=== PATIENT | female | born 1985 | race Caucasian/White ===

== ENCOUNTER → 2019-12-16 13:55 | Outpatient (CLI) | payer OTHER, SELFPAY ==
[2019-12-16 16:03] LABS: Estradiol 89.4 pg/mL; Follicle Stimulating Hormone 5.8 mIU/mL; Luteinizing Hormone 5.1 mIU/mL; Thyroid Stim Hormone (TSH) 0.86 uIU/mL (0.358-3.74)
[2019-12-22 14:47] LABS: HPV APTIMA, High Risk Negative (Negative)
[2019-12-22 14:48] LABS: HPV Reflexed? YES, CHARGE PATIENT
== END ==
LOC: WOBLAB 13:58
PROVIDERS: Visit Provider Student in an Organized Health Care Education/Training Program
DX: Z12.4 Encounter for screening for malignant neoplasm of cervix (principal); N95.2 Postmenopausal atrophic vaginitis
CPT/HCPCS: 36415; 82670; 83001; 83002; 84443; 87624; 88175; G0145

== ENCOUNTER → 2021-12-13 | Outpatient (CLI) | payer OTHER, SELFPAY ==
[2021-12-19 09:24] LABS: HPV APTIMA, High Risk Negative (Negative)
== END | disposition home or self-care (01) ==
LOC: LABSPEC 11:59
PROVIDERS: Visit Provider Student in an Organized Health Care Education/Training Program
DX: Z01.419 Encounter for gynecological examination (general) (routine) without abnormal findings (principal)
CPT/HCPCS: 87624; 88175; G0145

== ENCOUNTER → 2021-12-26 | Outpatient (CLI) | payer OTHER, SELFPAY ==
--- NOTE | 2021-12-26 13:55 | BI_ITS ---
MAMMOGRAPHY - BILATERAL DIAGNOSTIC REASON FOR EXAM: Female, 36 years old. Six-month history of left nipple discharge and pain. PERTINENT HISTORY: Mother with breast cancer. TECHNIQUE: Digital bilateral breast boo (3D mammographic acquisition) in the CC and MLO projections. 2-D mediolateral oblique (MLO) and craniocaudad (CC) views of both breasts were obtained. CAD: Full Field Digital Mammography with Computer Added Detection was performed. COMPARISON: None. Baseline examination. FINDINGS: Breast Composition: The breasts are heterogeneously dense, which may obscure small masses. There is a 1.1 cm x 0.9 cm slightly irregular nodular density in the deep retroareolar region of the left breast. Also suspect a 0.8 cm nodule deep to the previously mentioned nodule. Correlation with ultrasound is recommended. No other significant abnormalities are identified. BI/DIAG MAMM W/CAD, BILAT IMPRESSION: Findings suggestive of a 2 adjacent nodular densities in the central deep retroareolar region of the left breast. Correlation with ultrasound is recommended. ASSESSMENT CATEGORY: BIRADS Category 0: Incomplete. Need additional imaging evaluation. A letter regarding these results will be sent to the patient by the facility within 30 days. Approximately 10% of breast cancers are not detected by mammography. A normal mammogram should not delay biopsy of a clinically suspicious abnormality. Electronically Signed: Tee Nguyen MD at 15:12 EDT ,
--- NOTE | 2021-12-26 13:56 | US_ITS ---
STUDY: ULTRASOUND BREAST - LEFT REASON FOR EXAM: Female, 36 years old. Left nipple discharge. TECHNIQUE: Axial and longitudinal images of the LEFT breast were performed with a high resolution ultrasound transducer. # OF IMAGES: 28 COMPARISON: Comparison is made with prior mammogram done earlier in the day. FINDINGS: LEFT Breast: There are multiple subcentimeter cysts in the retroareolar region of the breast as well as dilated retroareolar ducts. There is evidence of a 0.7 cm x 1 cm x 0.5 cm complex cyst at the 6 o''clock position breast at 3 cm from nipple. Increased vascularity is seen within it. Biopsy recommended. US/Breast Limited Unilateral IMPRESSION: Multiple cysts as described in the retroareolar region of the breast as well as dilated ducts. There is a 7 mm x 10 mm x 5 mm complex cyst at the 6 o''clock position breast at 3 sinus from nipple with increased vascularity. Biopsy recommended. ASSESSMENT CATEGORY: BIRADS Category 4: Suspicious - Biopsy Should Be Considered. A letter regarding these results will be sent to the patient by the facility within 30 days. Electronically Signed: Tee Nguyen MD at 8:34 EDT ,
== END | disposition home or self-care (01) ==
LOC: OPBI 13:51
PROVIDERS: PCP Nurse Practitioner Family; Visit Provider Student in an Organized Health Care Education/Training Program
DX: N64.52 Nipple discharge (principal); Z80.3 Family history of malignant neoplasm of breast
CPT/HCPCS: 76642; 77062; 77066; G0279

== ENCOUNTER → 2022-01-07 | Outpatient (CLI) | payer OTHER, SELFPAY ==
--- NOTE | 2022-01-07 | BRBX_PTH ---
PATIENT: YESI BRYANT LOC: [facility] U#:[id number] AGE/SX: 36/F ROOM: RE01/07/[address]: Dr. Tucker Qureshi MD : 1985 BED: DIS: 01/07/2022 SPEC #: [id number] RECD: 01/07/22 13:24 STATUS: GUANACO KAROL #: [id number] MAI: 01/07/22 00:[address]: Tucker Qureshi DEPT: SURGICAL PATHOLOGY RECD BY: Livan Quevedo ENTERED: 01/07/22 13:24 SP TYPE: BREAST BX OTHR DR: SHIRA Ayala Tissues: Left breast, NOS Procedures: Surgery Specimen Level IV HEADER OPERATION: Ultrasound-guided left breast biopsy PRE-OP DIAGNOSIS: Left breast mass TISSUE SUBMITTED: Left breast mass ISCHEMIC TIME: 1 minute FIXATION TIME: 5.5 hours MICROSCOPIC DIAGNOSIS Left breast mass, ultrasound-guided core biopsy: Focal intraductal hyperplasia with atypia. Negative for malignancy. See comment. HOWARD:helena 01/08/2022 COMMENT Correlation with clinical, radiologic findings and appropriate follow up are necessary. MICROSCOPIC DESCRIPTION Slides are reviewed. GROSS DESCRIPTION Received in fixative is one container labeled with the patient's name and designated left breast. The specimen consists of multiple elongated fragments of silva-yellow fibroadipose tissue that in aggregate measure 2 x 1 x 0.1 cm. The entire specimen is submitted in one cassette. / HOWARD:helena 01/07/2022 TC:5 CPT: 72950
--- NOTE | 2022-01-07 11:54 | US_ITS ---
ULTRASOUND GUIDED CORE BIOPSY REASON FOR EXAM: Female, 36 years old. Abnormal mammogram of left breast PERTINENT HISTORY: Abnormal density at the 6 o''clock position of the breast COMPARISON: Comparison is made with prior sonogram dated 12/26/2021. TECHNIQUE: (All elements of maximal sterile barrier technique followed, including US elements as applicable) Under direct sonographic guidance, the surgeon performed 3 core biopsies of the nodularity at the 6 o''clock position of the breast at 3 cm from nipple. US/US Breast Biopsy 1st Lesion IMPRESSION: Ultrasound guided core biopsy of a mass in the LEFT breast at the 6 o''clock position of the breast at 3 cm from the nipple without complication. Electronically Signed: Tee Nguyen MD at 13:42 EDT ,
--- NOTE | 2022-01-07 12:33 | PCM.OPRPT ---
Report of Operation Date of Procedure: 01/07/22 Pre-Operative Diagnosis: Abnormal left breast mass Post-Operative Diagnosis: Same Surgery/Procedure Performed:: Ultrasound-guided left breast biopsy Specimen's removed: Left breast core biopsy Description of Procedure: Patient's left breast was prepped and draped in usual sterile fashion. Ultrasound was used localize the mass that was given a BI-RADS score 4. Lateral to this an area of skin was injected with local anesthetic as was the breast tissue. Next there was a small incision made with a scalpel. The mammotome core needle was placed into the mass and several biopsies were obtained. Next a titanium clip was placed into the mass. Steri-Strip and bandage were placed over the incision. Patient tolerated procedure well. I will call her with results.
== END | disposition home or self-care (01) ==
PROVIDERS: PCP Nurse Practitioner Family; Referring Provider Surgery; Visit Provider Surgery
DX: N63.20 Unspecified lump in the left breast, unspecified quadrant (principal); R92.8 Other abnormal and inconclusive findings on diagnostic imaging of breast
CPT/HCPCS: 19083; 88305

== ENCOUNTER 2022-01-16 05:55 | Day surgery (SDC) | payer OTHER, SELFPAY ==
[2022-01-16] VITALS (8 sets, daily range): BP systolic 85–130; BP diastolic 54–98; PULSE 52–80; RESP 16; TEMP 36.6–36.9; O2SAT 98–100; BMI 26.2
--- NOTE | 2022-01-16 | IMM_PTH ---
PATIENT: YESI BRYANT LOC: [facility] [place] U#:[id number] AGE/SX: 36/F ROOM: RE01/16/[address]: Dr. Tucker Qureshi MD : 1985 BED: DIS: 01/16/2022 SPEC #: [id number] RECD: 01/21/22 12:40 STATUS: GUANACO REQ #: [id number] MAI: 01/16/22 00:[address]: Tucker Qureshi DEPT: IMMUNOHISTOCHEMISTRY RECD BY: Elizabeth Parra ENTERED: 01/21/22 12:41 SP TYPE: IMMUNO OTHR DR: Lauren Sagastume, DIRECTOR INTERNAL COMMUNICATIONSAmanda Tissues: A - Left breast, NOS Procedures: SMA (add) CALPONIN-1 (add) CK5-6 (add) KI-67 (add) P53 (add) Pankeratin (initial) PHYSICIAN & INSTITUTION [place] [id number] SPECIMEN INFORMATION: Tissue Source: A ? Left breast mass Clinical Info: Ductal hyperplasia with atypia Specimen Number: [id number] CPT code: 95311, 37771 x5 METHODOLOGY: Deparaffinized sections of prefer/formalin-fixed tissue or PAP/DQ stained slides are incubated with monoclonal/polyclonal antibodies/oligonucleotide probes. Localization is made via biotin free immunoperoxidase method. Appropriate controls are performed and reacted as expected. Results on target cell population are indicated in the following table: RESULTS: ANTIBODY / CLONE RESULT Block A9 AE1-3 (AE1/AE3/PCK26) positive Calponin-1 (SN710M) positive Actin (1A4) positive CK5-6 (D5 & 1684) positive P53 (DO-7) negative Ki-67 (30-9) positive, low These tests were developed and their performance characteristics determined by [facility]. They may not have been cleared or approved by the U.S. Food and Drug Administration. The FDA has determined that such clearance or approval is not necessary. The above immunohistochemical/dualISH markers are ordered and reviewed by the Pathologist. INTERPRETATION: A. Left breast, lumpectomy: Focus of adenosis with atypia. AM:helena 01/22/2022 Case has been reviewed in consultation with Dr. Maurice who concurs with the above diagnosis. IDC:HOWARD
[2022-01-16] MEDS: Lactated Ringers 1,000 ML 15 ML IV (06:38)
--- NOTE | 2022-01-16 07:10 | HP.PCM.SX_ITS ---
HPI - General HPI Narrative YESI BRYANT, is a 36 F who presents for left breast mass. Patient had abnormal ultrasound left breast which showed a BI-RADS 4 lesion. This was biopsied and came back as ductal hyperplasia with atypia. [facility] Medical History (Updated 01/16/22 @ 07:[address] Tucker Qureshi MD) Anemia Anxiety Asthma Heartburn Smoker Wears contact lenses Wears partial dentures Home Medications calcium carbonate 500 mg capsule 500 mg PO PRN PRN Indigestion 01/13/22 [History Last Taken Unknown] Allergy/AdvReac Type Severity Reaction Status Date / Time No Known Allergies Allergy Verified 01/16/22 06:30 Family History (Updated 01/01/22 @ 09:41 by Cheryl Juarez) Mother Breast cancer Hypertension CAD (coronary artery disease) Grandmother Cancer uterine Father Migraine Surgical History (Updated 01/01/22 @ 09:40 by Cheryl Juarez) S/P arthroscopic knee surgery S/P arthroscopic knee surgery S/P section S/P excision of lipoma Social History (Updated 01/01/22 @ 09:41 by Cheryl Juarez) Smoking Status: Current some day smoker tobacco type: cigarettes alcohol intake: current details: social Vital Signs Vital Signs Vital Signs: 01/16/22 06:31 01/16/22 06:31 Temperature 97.8 F Temperature Source Temporal Pulse Rate 62 Respiratory Rate 16 Respiratory Pattern Normal Blood Pressure 108/81 H Blood Pressure Mean 90 Blood Pressure Source Monitor Blood Pressure Position Semi-Fowlers Blood Pressure Location Left Arm Pulse Ox 98 Oxygen Delivery Method Room Air Weight Weight: 147 lb 11.355 oz Body Mass Index (BMI) 26.2 Physical Exam Const oriented x3 Resp normal respiratory effort Cardio regular rate and regular rhythm GI normal to inspection, nondistended, normoactive bowel sounds Assessment & Plan Assessment/Plan (1) Atypical hyperplasia of left breast: PLAN: Patient had biopsy of left breast mass which showed ductal hyperplasia with atypia. She was recommended to have partial mastectomy to remove this segment for full biopsy. I discussed this with her in detail including the risks of bleeding, infection, seroma or hematoma formation. Patient understands the risks and is when to proceed. I will perform ultrasound-guided wire localization prior to surgery. Tucker Qureshi MD Pager: [facility] [address] [place] [address], [address] [place] [address] Office:
[2022-01-16] MEDS: Cefazolin 2 GM in 0.9% Normal Saline 100 ML IV (07:43)
--- NOTE | 2022-01-16 08:20 | BREAST_PTH ---
PATIENT: YEIS BRYANT LOC: [facility] [place] U#:[id number] AGE/SX: 36/F ROOM: RE01/16/[address]: Dr. Tucker Qureshi MD : 1985 BED: DIS: 01/16/2022 SPEC #: [id number] RECD: 01/16/22 08:34 STATUS: GUANACO KAROL #: [id number] MAI: 01/16/22 08:[address]: Tucker Qureshi DEPT: SURGICAL PATHOLOGY RECD BY: Juanito Jackson ENTERED: 01/16/22 09:02 SP TYPE: BREAST OTHR DR: SHIRA Ayala Tissues: A - Left breast, NOS B - Left breast, NOS Procedures: Surgery Specimen Level V HEADER OPERATION: Partial left breast mastectomy with ultrasound wire localization x2 PRE-OP DIAGNOSIS: Ductal hyperplasia with atypia TISSUE SUBMITTED: A - Left breast mass, long suture - lateral, short suture - superior, B - Left breast mass, long suture - lateral, short suture - superior MICROSCOPIC DIAGNOSIS A. Left breast, lumpectomy: Nodular adenosis with focal atypia. Usual intraductal hyperplasia with focal atypia. Intraductal papilloma. Fibrocystic change. Banal microcalcifications. See comment. B. Left breast mass, lumpectomy: Fibrocystic change. Adenosis. Focal involutional change. Focal intraductal hyperplasia without atypia. AM:helena 01/21/2022 COMMENT A. Immunohistochemistry ([id number]) supports the above diagnosis. Reference is made to the patient's previous left breast, ultrasound-guided core biopsy ([id number]) in which focal intraductal hyperplasia with atypia was identified. Case has been reviewed in consultation with Dr. Maurice who concurs with the above diagnosis. IDC:SJ MICROSCOPIC DESCRIPTION Slides are reviewed. GROSS DESCRIPTION A - Received fresh and post-fixed in formalin labeled with the patient's name and designated left breast mass, long suture - lateral, short suture - superior. The specimen consists of a piece of fibroadipose tissue with needle localization measuring 4 x 2 x 2.5 cm. The specimen is oriented as follows: long suture - lateral, short suture - superior. The specimen is inked as follows: anterior - yellow, posterior - black, superior - blue, inferior - green, medial - red and lateral - orange. The specimen is serially sectioned to reveal silva-yellow adipose cut surfaces mixed with silva-white fibrous areas. No obvious mass lesion is identified. The entire specimen is submitted in ten cassettes from anterior to posterior surface. Cassette 1 contains the most anterior portion of the specimen and cassette 10 contains the most posterior portion of the specimen. Sections will be submitted after additional fixation. B - Received fresh and post-fixed in formalin labeled with the patient's name and designated left breast mass, long suture - lateral, short suture - superior. The specimen consists of a piece of fibroadipose tissue with needle localization measuring 3.5 x 2.5 x 1 cm. The specimen is oriented as follows: long suture - lateral, short suture - superior. The specimen is inked as follows: anterior - yellow, posterior - black, superior - blue, inferior - green, medial - red and lateral - orange. The specimen is serially sectioned to reveal silva-yellow adipose cut surfaces mixed with silva-white fibrous areas. No obvious mass lesion is identified. The entire specimen is submitted in seven cassettes from anterior to posterior surface. Cassette 1 contains the most anterior portion of the specimen and cassette 7 contains the most posterior portion of the specimen. Sections will be submitted after additional fixation. / SJ:rg 01/17/2022 TC:5 CPT: 27389 x2
--- NOTE | 2022-01-16 08:23 | BI_ITS ---
SURGICAL BREAST SPECIMEN RADIOGRAPH CLINICAL: Document presence of tissue clip marker in biopsy specimen. FINDINGS: Specimen shows presence of tissue clip marker. Pathology is pending and an addendum to the biopsy report will be performed after the final pathologic diagnosis is rendered. Electronically Signed: Gadiel Scott MD at 9:51 EDT , BI/Breast Biopsy Specimen IMPRESSION: undefined
--- NOTE | 2022-01-16 08:24 | BI_ITS ---
SURGICAL BREAST SPECIMEN RADIOGRAPH CLINICAL: Document presence of mass in biopsy specimen. FINDINGS: Specimen shows presence of mass. Pathology is pending and an addendum to the biopsy report will be performed after the final pathologic diagnosis is rendered. Electronically Signed: Gadiel Scott MD at 9:51 EDT , BI/Breast Biopsy Specimen IMPRESSION: undefined
--- NOTE | 2022-01-16 08:45 | PCM.OPRPT ---
Report of Operation Date of Procedure: 01/16/22 Pre-Operative Diagnosis: Left breast mass x2, ductal hyperplasia with atypia Post-Operative Diagnosis: Same Surgery/Procedure Performed:: 1. Ultrasound-guided wire localization 2. Left partial mastectomy Specimen's removed: Breast mass x2 Description of Procedure: Patient was brought back to the operating room and general anesthesia was induced. The left breast was examined under ultrasound. The area that was previously biopsied was identified and the skin was prepped. Under ultrasound guidance a wire was placed into this area. Next the small breast mass that was lateral to the one that was biopsied was also wire localized in the same fashion. Next the breast was prepped and draped in usual sterile fashion. An incision was marked between the 2 wires and injected with local anesthetic. Incision was then made with a scalpel. The medial mass was dissected free using electrocautery and then marked and sent for pathology. Imaging confirmed I wire was complete and the clip was in the specimen. Next the mass that was just lateral was dissected free using electrocautery and sent for pathology. The specimen was marked #2. Next the cavity was irrigated and suctioned dry and hemostasis was obtained using electrocautery. The incision was then closed with interrupted 3-0 Vicryl and a running 4-0 Monocryl. Glue was then applied. Patient tolerated the procedure well was taken to PACU in stable condition. Admit VTE Documentation VTE Mechan Device Prophylaxis: SCD's
--- NOTE | 2022-01-16 08:53 | DCINST_ITS ---
Discharge Instructions Procedure Breast Surgery Diet Discharge Diet: No restrictions Activity Discharge Activity: May Not Drive (for 2-3 days or while taking narcotic pain medications.) and May Shower (Tomorrow) May shower in (days): 1 Lifting Restrictions: 15 lbs for 1 week Additional Activity Instructions:: Light activity for 1 week Dressing / Incision Call your doctor if your incision/area has: Continuous Slow Oozing, Sudden Increased Bleeding, Increased Pain/ Swelling, Increased Redness, Foul Smelling Discharge and Swelling at the incision site Call your doctor if you observe: Fever of 101 or Higher Suture Line Care: Avoid Pulling/Pushing and Avoid Pinching/Bending Cleanse incision/area with: Soap & Water Follow Up Care Please Follow Up With: Tucker Qureshi MD When: Please call to schedule 1 week follow up appointment. [phone] Test Results: Test results from this visit will be discussed in further detail at your follow-up appointment, if applicable. Discharge Plan Admission Attending Provider: Tucker Qureshi Primary Care Provider: Lauren Sagastume NP Discharge Orders/Prescriptions Prescriptions: New oxycodone-acetaminophen [Percocet] 5-325 mg tablet 1 tab PO Q4H PRN (Reason: pain) 5 Days Qty: 20 0RF No Action Arti-Banks Antacid 500 mg Capsule 500 mg PO PRN PRN (Reason: Indigestion) Referrals / Follow Up: Lauren Sagastume NP, HOSPITAL FOOD SERVICE WORKER-C [Primary Care Provider] - Disposition Disposition (needs filled in before D/C Order can be placed): Home, Self Care
[2022-01-16] MEDS: oxyCODONE 5 MG Tablet PO (10:20)
== END 2022-01-16 11:26 | disposition home or self-care (01) ==
LOC: SDC 05:55 → AC 05:57
PROVIDERS: PCP Nurse Practitioner Family; Referring Provider Surgery; Visit Provider Surgery
PROC: (CPT 19301; principal; 2022-01-16 07:15)
DX: N62 Hypertrophy of breast (principal); N60.99 Unspecified benign mammary dysplasia of unspecified breast; F17.210 Nicotine dependence, cigarettes, uncomplicated; Z80.3 Family history of malignant neoplasm of breast; N63.20 Unspecified lump in the left breast, unspecified quadrant; F41.9 Anxiety disorder, unspecified; R92.8 Other abnormal and inconclusive findings on diagnostic imaging of breast
CPT/HCPCS: 19301; 19083; 00404; 76098; 88307; 88341; 88342; J7120; J3490; Q9968

== ENCOUNTER → 2022-07-25 | Outpatient (CLI) | payer OTHER, SELFPAY ==
--- NOTE | 2022-07-25 12:36 | BI_ITS ---
MAMMOGRAPHY - BILATERAL SCREENING REASON FOR EXAM: Female, 37 years old. Routine annual screening examination. PERTINENT HISTORY: Mother with breast cancer. TECHNIQUE: Digital bilateral breast fritz (3D mammographic acquisition) in the CC and MLO projections. 2-D mediolateral oblique (MLO) and craniocaudad (CC) views of both breasts were obtained. CAD: Full Field Digital Mammography with Computer Added Detection was performed. COMPARISON: Comparison is made with prior study of December 26, 2021. FINDINGS: Breast Composition: The breasts are heterogeneously dense, which may obscure small masses. There is a 1.2 cm x 1.1 cm nodular density in the deep retroareolar region of the left breast. Follow-up sonogram of the left breast is recommended for further evaluation. No other significant abnormalities are identified. BI/SCRN MAMM (CAD)W/FRITZ BILAT IMPRESSION: 1.2 cm x 1.1 cm nodular density in deep retroareolar region of the left breast. Correlation with ultrasound is recommended. ASSESSMENT CATEGORY: BIRADS Category 0: Incomplete. Need additional imaging evaluation. A letter regarding these results will be sent to the patient by the facility within 30 days. Approximately 10% of breast cancers are not detected by mammography. A normal mammogram should not delay biopsy of a clinically suspicious abnormality. [id number] Electronically Signed: Tee Nguyen MD at 13:58 EDT ,
== END | disposition home or self-care (01) ==
LOC: OPBI 12:32
PROVIDERS: PCP Nurse Practitioner Family; Visit Provider Student in an Organized Health Care Education/Training Program
DX: Z12.31 Encounter for screening mammogram for malignant neoplasm of breast (principal); Z85.3 Personal history of malignant neoplasm of breast
CPT/HCPCS: 77063; 77067

== ENCOUNTER → 2022-07-28 | Outpatient (CLI) | payer OTHER, SELFPAY ==
--- NOTE | 2022-07-28 14:27 | US_ITS ---
STUDY: ULTRASOUND BREAST - LEFT REASON FOR EXAM: Female, 37 years old. Abnormal screening mammogram. TECHNIQUE: Axial and longitudinal images of the LEFT breast were performed with a high resolution ultrasound transducer. # OF IMAGES: 36 COMPARISON: Comparison is made with prior mammogram dated July 25, 2022. FINDINGS: LEFT Breast: The retroareolar region of the left breast was examined with ultrasound. The mammographic abnormality corresponds to a 1.2 cm x 1.2 cm x 0.7 cm cyst. There is also evidence of a 8mm by 7 mm x 6 mm cyst at the 12:00 position of the breast at 2 cm from nipple. US/Breast Limited Unilateral IMPRESSION: The mammographic abnormality corresponds to a 1.2 cm x 1.2 cm x0.7 cm cyst. Adjacent to this, there is an 8 mm x 7 mm x 6 mm cyst. ASSESSMENT CATEGORY: BIRADS Category 2: Benign. A letter regarding these results will be sent to the patient by the facility within 30 days. Electronically Signed: Tee Nguyen MD at 15:30 EDT ,
== END | disposition home or self-care (01) ==
LOC: OPUS 14:24
PROVIDERS: PCP Nurse Practitioner Family; Visit Provider Student in an Organized Health Care Education/Training Program
DX: R92.8 Other abnormal and inconclusive findings on diagnostic imaging of breast (principal)
CPT/HCPCS: 76642

== ENCOUNTER → 2022-07-31 | Outpatient (CLI) | payer OTHER, SELFPAY ==
--- NOTE | 2022-07-31 | IMM_PTH ---
PATIENT: YESI BRYANT LOC: [facility] U#:[id number] AGE/SX: 37/F ROOM: RE07/31/[address]: Dr. Christie Arreola MD : 1985 BED: DIS: 07/31/2022 SPEC #: [id number] RECD: 08/04/22 13:36 STATUS: GUANACO REQ #: [id number] MAI: 07/31/22 00:[address]: Christie Arreola DEPT: IMMUNOHISTOCHEMISTRY RECD BY: Elizabeth Parra ENTERED: 08/04/22 13:37 SP TYPE: IMMUNO OTHR DR: Lauren Sagastume, CARD GRINDER HELPER-Gracy Tissues: Left breast, NOS Procedures: SMA (add) CALPONIN-1 (add) P53 (add) Pankeratin (initial) P40 (add) PHYSICIAN & INSTITUTION [place] [id number] SPECIMEN INFORMATION: Tissue Source: Left breast Clinical Info: Left breast nodule - retroareolar Specimen Number: [id number] CPT code: 79817, 35244 x4 METHODOLOGY: Deparaffinized sections of prefer/formalin-fixed tissue or PAP/DQ stained slides are incubated with monoclonal/polyclonal antibodies/oligonucleotide probes. Localization is made via biotin free immunoperoxidase method. Appropriate controls are performed and reacted as expected. Results on target cell population are indicated in the following table: RESULTS: ANTIBODY / CLONE RESULT AE1-3 (AE1/AE3/PCK26) positive Calponin-1 (AT688X) positive Actin (1A4) positive P40 (BC28) positive P53 (DO-7) negative These tests were developed and their performance characteristics determined by [facility]. They may not have been cleared or approved by the U.S. Food and Drug Administration. The FDA has determined that such clearance or approval is not necessary. The above immunohistochemical/dualISH markers are ordered and reviewed by the Pathologist. INTERPRETATION: Left breast, core biopsy: Consistent with fibroadenoma. AM:helena 08/05/2022
--- NOTE | 2022-07-31 | BRBX_PTH ---
PATIENT: YESI BRYANT LOC: [facility] U#:[id number] AGE/SX: 37/F ROOM: RE07/31/[address]: Dr. Christie Arreola MD : 1985 BED: DIS: 07/31/2022 SPEC #: [id number] RECD: 07/31/22 15:58 STATUS: GUANACO REJayson #: [id number] MAI: 07/31/22 00:[address]: Christie Arreola DEPT: SURGICAL PATHOLOGY RECD BY: Livan Quevedo ENTERED: 08/01/22 08:58 SP TYPE: BREAST BX OTHR DR: Lauren Sagastume, SHIRA Tissues: Left breast, NOS Procedures: Surgery Specimen Level IV HEADER OPERATION: Left breast biopsy PRE-OP DIAGNOSIS: Left breast mass, history of ADH in left breast TISSUE SUBMITTED: Left breast nodule - retroareolar FIXATION TIME: 77 hours MICROSCOPIC DIAGNOSIS Left breast, retro areolar, needle core biopsy: Consistent with fibroadenoma. Focal intraductal hyperplasia without atypia. See comment. AM:helena 08/04/2022 COMMENT Immunohistochemistry ([id number]) supports the above diagnosis. Reference is made to the patient's previous left breast lumpectomy ([id number]) in which adenosis with focal atypia, intraductal hyperplasia with focal atypia, intraductal papilloma and fibrocystic change was identified. Case has been reviewed in consultation with Dr. Maurice who concurs with the above diagnosis. ANNA:HOWARD MICROSCOPIC DESCRIPTION Slides are reviewed. GROSS DESCRIPTION Received in fixative is one container labeled with the patient's name and designated left breast. The specimen consists of multiple elongated fragments of silva-yellow fibroadipose tissue that in aggregate measure 1.5 x 0.3 x 0.1 cm. The entire specimen is submitted in one cassette. / HOWARD:helena 08/01/2022 TC:5 CPT: 48137
== END | disposition home or self-care (01) ==
LOC: LABSPEC 16:25
PROVIDERS: PCP Nurse Practitioner Family; Visit Provider Surgery
DX: N63.20 Unspecified lump in the left breast, unspecified quadrant (principal)
CPT/HCPCS: 88305; 88341; 88342

== ENCOUNTER → 2022-08-07 | Outpatient (CLI) | payer OTHER, SELFPAY ==
--- NOTE | 2022-08-07 10:24 | MRI_ITS ---
STUDY: BILATERAL BREAST MR WITHOUT AND WITH CONTRAST REASON FOR EXAM: Female, 37 years old. Recent left breast biopsy with atypical hyperplasia. History of breast cancer in mother. TECHNIQUE: Multi-sequence multi-echo imaging of both breasts was performed with a dedicated breast coil. T1-weighted and T2-weighted images were performed before the administration of contrast. T1-weighted images were also performed after the intravenous administration of 14ml of Clariscan. COMPARISON: Screening mammogram dated July 25, 2022 and left breast ultrasound dated July 28, 2022. FINDINGS: RIGHT BREAST: The breast tissue is heterogeneously dense with minimal background enhancement. Multiple small cysts. There are no abnormal enhancing masses or areas of non-mass enhancement in the right breast. LEFT BREAST: The breast tissue is heterogeneously dense with a crown enhancement Ovoid circumscribed enhancing mass 4.7 cm behind the nipple and 1.3 cm above the nipple with adjacent tissue marker artifact. This lesion corresponds to the ultrasonographic finding. No other enhancing masses identified.. Multiple bilateral lymph nodes with normal morphology. No abnormality in the visualized regions of the chest or liver. MRI/Breast Bilateral W/O and W IMPRESSION: Heterogeneously dense fibroglandular tissue with minimal background enhancement bilaterally. Ovoid circumscribed enhancing mass in the left breast corresponding to the ultrasonographic abnormality. No other suspicious masses identified. CATEGORY: BIRADS Category 2: Benign. A letter regarding these results will be sent to the patient by the facility within 30 days. Electronically Signed: Johnathon Keller, at 9:33 EDT ,
== END | disposition home or self-care (01) ==
LOC: MRI 10:24
PROVIDERS: PCP Nurse Practitioner Family; Referring Provider Surgery; Visit Provider Surgery
DX: Z12.39 Encounter for other screening for malignant neoplasm of breast (principal); Z87.42 Personal history of other diseases of the female genital tract
CPT/HCPCS: 77049; A9575; J7050; A4216; C8908

== ENCOUNTER → 2022-08-13 | Outpatient (CLI) | payer OTHER, SELFPAY ==
[2022-08-13 16:37] LABS: NATERA MAILED SPECIMEN
== END | disposition home or self-care (01) ==
LOC: LAB 15:34
PROVIDERS: PCP Nurse Practitioner Family; Referring Provider Surgery; Visit Provider Surgery
DX: N60.92 Unspecified benign mammary dysplasia of left breast (principal); Z80.3 Family history of malignant neoplasm of breast
CPT/HCPCS: 36415

== ENCOUNTER → 2022-12-22 | Outpatient (CLI) | payer OTHER, SELFPAY ==
--- NOTE | 2022-12-22 14:24 | BI_ITS ---
MAMMOGRAPHY - BILATERAL DIAGNOSTIC REASON FOR EXAM: Female, 37 years old. Six-month follow-up examination following ultrasound-guided left breast biopsy. PERTINENT HISTORY: Mother with breast cancer. TECHNIQUE: Digital bilateral breast boo (3D mammographic acquisition) in the CC and MLO projections. 2-D mediolateral oblique (MLO) and craniocaudad (CC) views of both breasts were obtained. CAD: Full Field Digital Mammography with Computer Added Detection was performed. COMPARISON: Comparison is made with prior study from July 25, 2022. FINDINGS: Breast Composition: The breasts are heterogeneously dense, which may obscure small masses. A tissue clip marker is seen within a 1.27 x 1.17 nodular density in the deep retroareolar region of the left breast No other significant abnormalities are identified. There has been no significant change since the prior study. BI/DIAG MAMM W/CAD, BILAT IMPRESSION: Stable bilateral diagnostic mammogram. One year follow-up recommended. (A) ASSESSMENT CATEGORY: BIRADS Category 2: Benign. A letter regarding these results will be sent to the patient by the facility within 30 days. Approximately 10% of breast cancers are not detected by mammography. A normal mammogram should not delay biopsy of a clinically suspicious abnormality. Electronically Signed: Tee Nguyen MD at 15:45 EDT ,
== END | disposition home or self-care (01) ==
PROVIDERS: PCP Nurse Practitioner Family; Referring Provider Student in an Organized Health Care Education/Training Program; Visit Provider Student in an Organized Health Care Education/Training Program
DX: N60.82 Other benign mammary dysplasias of left breast (principal); Z80.3 Family history of malignant neoplasm of breast
CPT/HCPCS: 77062; 77066; G0279